=== PATIENT | male | born 1990 | race African-American/Black ===

== ENCOUNTER 2017-12-16 20:17 | Emergency (ER) | payer OTHER ==
[~2017-12-16] VITALS: Ht 175.3 cm; Wt 79.2 kg
[2017-12-16] MEDS ORDERED: KEFLEX500 MG PO (22:43)
[2017-12-16] MEDS ORDERED: PERCOCET 5/31 TABLET PO (22:44)
[2017-12-16 23:12] VITALS: BP 144/84
== END 2017-12-16 23:15 | disposition home or self-care (01) ==
LOC: EME 20:17
DX: S02.609A Fracture of mandible, unspecified, initial encounter for closed fracture (principal); V49.9XXA Car occupant (driver) (passenger) injured in unspecified traffic accident, initial encounter; Y92.410 Unspecified street and highway as the place of occurrence of the external cause; F17.200 Nicotine dependence, unspecified, uncomplicated
CPT/HCPCS: 70486; 99281; 99283